=== PATIENT | female | born 1970 | race Caucasian/White ===

== ENCOUNTER 2022-10-12 18:36 | Inpatient (IN) | payer OTHER, SELFPAY ==
[2022-10-12] VITALS (8 sets, daily range): BP systolic 122–156; BP diastolic 81–92; PULSE 79–109; RESP 14–18; TEMP 36.3–37.1; O2SAT 99–100; BMI 26.2; BMI 26.6
--- NOTE | 2022-10-12 19:02 | RAD_ITS ---
STUDY: X-RAY CHEST REASON FOR EXAM: Female, 52 years old. chest pain TECHNIQUE: AP portable COMPARISON: None. FINDINGS: The lungs are clear and expanded. There is no demonstrated pleural abnormality. Normal size heart. Normal mediastinum and georgette. Normal visualized pulmonary arteries. Normal visualized aortic arch and descending thoracic aorta. Dorsal spine demonstrates degenerative change. Normal visualized ribs, clavicles, and shoulders. There is no demonstrated abnormality of the visualized soft tissue structures of the upper abdomen. RAD/Chest 1 View (Portable) IMPRESSION: No acute cardiopulmonary pathology. Electronically Signed: Adarsh Melendez MD at 19:45 EDT ,
[2022-10-12 19:08] LABS: Absolute Lymphocyte Count 3.96 X10^3/uL (0.83-4.51); Absolute Neutrophil Count 4.8 X10^3/uL (2.0-7.7); Basophil# 0.07 X10^3/uL; Basophil% 0.7 % (0-1); Eosinophil# 0.07 X10^3/uL; Eosinophils% 0.7 % (0-5); Hematocrit 41.3 % (37-47); Hemoglobin 13.8 g/dL (12.0-15.0); Lymphocyte # 3.96 X10^3/ul (0.83-4.51); Lymphocyte % 41.8 % (19-41); Mean Corp Hgb Conc 33.4 g/dL (32-36); Mean Corpuscular Hgb 30.2 pg (27.0-32.0); Mean Corpuscular Volume 90.4 fL (81-99); Mean Platelet Vol. 10.3 fl (6.2-12.0); Monocyte# 0.52 X10^3/uL; Monocyte% 5.5 % (0-10); NRBC Flagged by Analyzer 0 % (0-5); Neutrophil # 4.83 X10^3/uL (2.7-7.7); Neutrophil % 51.1 % (47-70); Platelet Count 287 K/mm3 (150-450); RBC Distribution Width CV 13.3 % (11.6-14.6); Red Blood Count 4.57 M/mm3 (4.2-5.4); White Blood Count 9.5 K/mm3 (4.4-11.0)
[2022-10-12 19:28] LABS: Anion Gap 8 (5-15); BUN 15 mg/dL (7-18); Calcium,Total 9.4 mg/dL (8.5-10.1); Chloride 106 mmol/L (98-107); Creatinine, Serum 0.88 mg/dL (0.55-1.02); EST Glomerular Filtration Rate 72 mL/min (>60); Est Glom Filt Rate - Afr Amer 87 mL/min (>60); Estimated Creatinine Clearance 63.27 ml/min; Glucose 98 mg/dL (74-106); Potassium 4.6 mmol/L (3.5-5.1); Sodium Level 141 mmol/L (136-145); Troponin-I HS 1133 pg/mL (3.0-54.0)
--- NOTE | 2022-10-12 19:36 | EDS_ITS ---
HPI History of Present Illness Chief Complaint: Chest Pain Narrative Narrative: 52-year-old female presenting with chest pain. She states that she has had chest pain all day and it feels like a pressure in the front of her chest that radiates straight to the back of her chest. Patient denies cardiac history. She denies other medical history. She reports that she has not been to a doctor in a very long time. She does also state that her father of an [place]. She states has been nauseous today. She describes her pain as 6 of 10. [facility], [facility] Medical History No acute medical problems Home Medications NK 10/12/22 [History Last Taken Unknown] Allergy/AdvReac Type Severity Reaction Status Date / Time No Known Allergies Allergy Verified 10/12/22 18:52 Social History Smoking Status: Never smoker ROS ROS ED Constitutional Constitutional ED: Denies chills, fever(s) or sweats Eyes Eyes: Denies blurry vision or change in vision ENT ENT ED: Denies ear pain or sore throat Cardiovascular Cardiovascular: Reports chest pain; Denies palpitations or racing heartbeat Respiratory/Chest Respiratory/Chest: Denies cough, dyspnea or sputum Gastrointestinal Gastrointestinal: Reports nausea; Denies abdominal pain, constipation, diarrhea or vomiting Genitourinary Genitourinary ED: Denies dysuria, hematuria or urinary frequency Musculoskeletal Musculoskeletal: Denies arthralgias, myalgias or neck pain Integumentary Denies abscess, Abrasions or rash Neurologic Neurologic: Denies headache(s), paresthesias or weakness Psychiatric Psychiatric: Denies anxiety, depression, suicidal ideation or suicidal thoughts Endocrine Endocrinology: Denies polydipsia or polyuria EXAM Physical Exam Const Vital Signs: 10/12/22 18:37 10/12/22 18:50 10/12/22 18:52 Temperature 97.3 F L Temperature Source Temporal Pulse Rate 109 H Respiratory Rate 18 Respiratory Effort Normal Non-Labored Blood Pressure 156/88 H Blood Pressure Mean 110 Pulse Ox 99 100 Oxygen Delivery Method Room Air Room Air 10/12/22 19:43 Temperature Temperature Source Pulse Rate 97 Respiratory Rate 18 Respiratory Effort Blood Pressure 130/81 H Blood Pressure Mean 97 Pulse Ox 100 Oxygen Delivery Method Room Air Positive well nourished General Appearance ED: NAD; Negative for pallor HEENT Reports moist mucous membranes Eyes PERRL and EOMs intact bilaterally Chest Wall inspection of chest normal Resp normal respiratory effort and clear to auscultation bilaterally Cardio Rate: tachycardic Neuro oriented x3 and CN's II-XII intact bilaterally Sensorium / Orientation: awake and alert Psych mental status grossly normal Skin General Skin Exam: Negative for jaundice or pallor Heart Score History: Highly Suspicious ECG: Normal Age: >45 - <65 years Risk Factors: No Risk Factors Troponin: >/=3 x Normal Limit Score: 5 MDM MDM MDM Narrative Medical decision making narrative: Patient presenting with chest pain. She had pressure in the front of as well as nausea that radiates to the back. She does not have any significant medical history but reports she has not been to the doctor in a long time. Differential includes but is not limited to ACS, PE, aortic dissection, pneumonia, muscle strain, costochondritis. Although the pain radiates to the back is not a ripping tearing sensation to suggest a dissection. I also considered pneumothorax however the patient has equal symmetric breath sounds and chest wall rise. Cannot use PERC criteria because she is tachycardic and will obtain a D-dimer. She does not have any risk factors currently for PE. CBC to evaluate leukocytosis, hemoglobin, platelets, differential. BMP to assess renal function, electrolytes, glucose, anion gap. High-sensitivity troponin, EKG and chest x-ray to assess for cardiopulmonary cause of chest pain. Patient reports 6/10 of pain and she is started on nitro trial. High-sensitivity troponin came back at 1133. Heparin drip was started. Patient reports he took 325 mg of aspirin today prior to coming. Will reevaluate to assess for pain. Discussed with hospitalist for admission. On reevaluation her chest pain did improved and she is now comfortable. Impression: 1. NSTEMI Lab Data Labs: Laboratory Results - last 24 hr 10/12/22 10/12/22 10/12/22 19:02 19:02 19:02 WBC 9.5 RBC 4.57 Hgb 13.8 Hct 41.3 MCV 90.4 MCH 30.2 MCHC 33.4 RDW Std Deviation 44.0 H RDW Coeff of Ag 13.3 Plt Count 287 MPV 10.3 Immature Gran % (Auto) 0.200 Neut % (Auto) 51.1 Lymph % (Auto) 41.8 H [place] % (Auto) 5.5 Eos % (Auto) 0.7 Baso % (Auto) 0.7 Absolute Neuts (auto) 4.8 Absolute Lymphs (auto) 3.96 Nucleated RBC % 0 PT INR APTT D-Dimer Quant (PE/DVT) 0.40 Sodium 141 Potassium 4.6 Chloride 106 Carbon Dioxide 27.0 Anion Gap 8 BUN 15 Creatinine 0.88 Estim Creat Clear Calc 63.27 Est GFR (MDRD) Af Amer 87 Est GFR (MDRD) Non-Af 72 BUN/Creatinine Ratio 17.0 Glucose 98 Calcium 9.4 Troponin I High Sens 1133 H* 10/12/22 19:02 WBC RBC Hgb Hct MCV MCH MCHC RDW Std Deviation RDW Coeff of Ag Plt Count MPV Immature Gran % (Auto) Neut % (Auto) Lymph % (Auto) [place] % (Auto) Eos % (Auto) Baso % (Auto) Absolute Neuts (auto) Absolute Lymphs (auto) Nucleated RBC % PT 11.7 INR 0.9 APTT 28.2 D-Dimer Quant (PE/DVT) Sodium Potassium Chloride Carbon Dioxide Anion Gap BUN Creatinine Estim Creat Clear Calc Est GFR (MDRD) Af Amer Est GFR (MDRD) Non-Af BUN/Creatinine Ratio Glucose Calcium Troponin I High Sens Radiography Diagnostic Testing: Clinical Impression(s) from Imaging Studies Chest X-Ray 10/12/22 19:02 IMPRESSION: No acute cardiopulmonary pathology. Electronically Signed: Adarsh Melendez MD at 19:45 EDT , Discharge Plan Triage Chief Complaint: Chest Pain ED Provider: Christopher Mcknight Dx/Rx/DC Orders Primary Care Provider: Olive Chowdhury
--- NOTE | 2022-10-12 19:46 | PCM.HP.STD ---
HPI - General General Date of Admission: 10/12/22 Date of Service: 10/12/22 Chief Complaint: Chest pain HPI Narrative VARUN CHERRY, is a 52 F who presents to the emergency room with chief complaint of chest pain. Onset of symptoms began this morning approximately 10:00 while she was cutting grass. Patient is of a [place] order and has not seen a doctor in recently.. She has significant family history for father who young of heart attack. Originally the pain was substernal radiating to the right upper shoulder and back and currently is dissipated but rates it 6 out of 10 in her mid back at this time. EKG is negative for ST elevations. Troponin is markedly elevated at 1100. Patient denies any fevers chills, nausea vomiting or diarrhea and/or shortness of breath at this time. Patient will be admitted to the progressive care unit for further cardiac management and anticipate cardiac catheterization. [facility] Medical History No acute medical problems Home Medications NK 10/12/22 [History Last Taken Unknown] Allergy/AdvReac Type Severity Reaction Status Date / Time No Known Allergies Allergy Verified 10/12/22 18:52 Social History Smoking Status: Never smoker ROS Constitutional Constitutional: Denies chills or fever(s) Eyes Eyes: Denies blurry vision or change in vision ENT HEENT: Denies abnormal hearing Cardiovascular Cardiovascular: Reports chest pain; Denies edema or syncope Respiratory/Chest Respiratory/Chest: Denies cough Gastrointestinal Gastrointestinal: Denies abdominal pain Genitourinary Genitourinary: Denies dysuria Musculoskeletal Musculoskeletal: Reports back pain Integumentary Integumentary: Denies dry skin Neurologic Neurologic: Denies abnormal gait Psychiatric Psychiatric: Denies anxiety Vital Signs Vital Signs Vital Signs: 10/12/22 18:37 10/12/22 18:50 10/12/22 18:52 Temperature 97.3 F L Temperature Source Temporal Pulse Rate 109 H Respiratory Rate 18 Respiratory Effort Normal Non-Labored Blood Pressure 156/88 H Blood Pressure Mean 110 Pulse Ox 99 100 Oxygen Delivery Method Room Air Room Air 10/12/22 19:43 Temperature Temperature Source Pulse Rate 97 Respiratory Rate 18 Respiratory Effort Blood Pressure 130/81 H Blood Pressure Mean 97 Pulse Ox 100 Oxygen Delivery Method Room Air Weight Weight: 148 lb Body Mass Index (BMI) 26.2 Physical Exam Const alert and oriented x3 General Appearance: cooperative HEENT normocephalic and head/scalp atraumatic Lymph Lymphatic: no lymphadenopathy noted Resp normal respiratory effort, normal air movement and clear to auscultation bilaterally Cardio regular rate, regular rhythm, S1 normal heart sound, S2 normal heart sound, no murmurs, no rub and no gallops GI normal to inspection, nondistended, normoactive bowel sounds Extremity normal capillary refill and no clubbing, cyanosis or edema Skin General Skin Exam: no breakdown Neuro no focal motor deficits and no sensory deficits noted Psych thought process normal, cooperative and affect normal Results Lab / Micro Data Result Diagrams: 10/12/22 19:02 10/12/22 19:02 Labs: Laboratory Results - last 24 hr 10/12/22 19:02: WBC 9.5, RBC 4.57, Hgb 13.8, Hct 41.3, MCV 90.4, MCH 30.2, MCHC 33.4, RDW Std Deviation 44.0 H, RDW Coeff of Ag 13.3, Plt Count 287, MPV 10.3, Immature Gran % (Auto) 0.200, Neut % (Auto) 51.1, Lymph % (Auto) 41.8 H, [place] % (Auto) 5.5, Eos % (Auto) 0.7, Baso % (Auto) 0.7, Absolute Neuts (auto) 4.8, Absolute Lymphs (auto) 3.96, Nucleated RBC % 0 10/12/22 19:02: D-Dimer Quant (PE/DVT) 0.40 10/12/22 19:02: Sodium 141, Potassium 4.6, Chloride 106, Carbon Dioxide 27.0, Anion Gap 8, BUN 15, Creatinine 0.88, Estim Creat Clear Calc 63.27, Est GFR (MDRD) Af Amer 87, Est GFR (MDRD) Non-Af 72, BUN/Creatinine Ratio 17.0, Glucose 98, Calcium 9.4, Troponin I High Sens 1133 H* Assessment & Plan Assessment/Plan (1) NSTEMI (non-ST elevated myocardial infarction): PLAN: Plan 1 non-ST elevation MO?admit patient to progressive care unit, consult cardiology, cycle cardiac enzymes, morphine, oxygen, nitroglycerin and aspirin per routine protocol. We will make patient n.p.o. at midnight anticipating likely heart catheterization tomorrow morning. We will repeat CBC BMP and PT/INR as well 2. DVT prophylaxis?patient has been heparinized in the emergency room Charges/Coding Visit Charges Inpatient E&M: 13567 Init Hosp L3
[2022-10-12] MEDS: 0.9% Normal Saline 1,000 ML 999 ML IV (19:57)
[2022-10-12 19:58] LABS: International Normalized Ratio 0.9; Prothrombin Time (Protime)PT. 11.7 SECONDS (11.7-14.9)
[2022-10-12 19:59] LABS: Partial Thromboplast Time 28.2 Seconds (24.1-36.2)
[2022-10-12] MEDS: HEPARIN/D5w 25,000 UNITS 25,000 UNITS/250 ML IV.SOLN. 8 UNITS CONT INF (20:13)
--- NOTE | 2022-10-12 21:07 | PCM.CONS.C ---
Assessment & Plan Assessment/Plan (1) NSTEMI (non-ST elevated myocardial infarction): PLAN: She presents with a non-ST elevation myocardial infarction. His symptoms are fairly classic. I have discussed with her and her and my recommendation will be to proceed as follows. Aspirin 81 mg a day. Toprol-XL 25 mg a day. Lipitor 40 mg tonight. Lovenox 1 mg/kg twice daily. Left heart catheterization in a.m. Depending on the findings further recommendations will be made. Risk benefits alternatives have been discussed with her and her they understand and agree to proceed. Thank you for allowing me to participate in the care of your patient. Please don't hesitate to call if any issues arise. HPI Consult Data Date of Consult: 10/12/22 HPI Narrative HPI Narrative: VARUN CHERRY, is a 52 F who presents to the emergency room complaining of chest discomfort described as a heaviness and tightness across her chest radiating to her back associated with sharp discomfort. She was also experiencing some diaphoresis. This happened when she was mowing the lawn this afternoon. She says that she has otherwise been in excellent health with no dizziness or diaphoresis near syncope or syncope. She has not really been on medications and has been doing well otherwise. [facility] Medical History No acute medical problems Home Medications NK 10/12/22 [History Last Taken Unknown] Allergy/AdvReac Type Severity Reaction Status Date / Time No Known Allergies Allergy Verified 10/12/22 18:52 Social History Smoking Status: Never smoker ROS Constitutional Constitutional: Denies fever(s) or weight loss Eyes Eyes: Reports systems reviewed and no addt'l complaints, except as documented ENT HEENT: Reports systems reviewed and no addt'l complaints, except as documented Cardiovascular Cardiovascular: Reports chest pain at rest, chest pain with activity and dyspnea on exertion; Denies dyspnea at rest, edema, palpitations or paroxysmal nocturnal dyspnea Respiratory/Chest Respiratory/Chest: Denies dyspnea on exertion, productive cough, shortness of breath at rest or shortness of breath with exertion Gastrointestinal Gastrointestinal: Denies change in bowel habits, nausea, vomiting or weight changes Genitourinary Genitourinary: Denies difficulty urinating Musculoskeletal Musculoskeletal: Denies joint stiffness or muscle weakness Integumentary Integumentary: Denies lesions Neurologic Neurologic: Denies dizziness or syncope Psychiatric Psychiatric: Denies anxiety Endocrine Endocrinology: Denies excessive sweating or fatigue Hematologic/Lymphatic Hematologic/Lymphatic: Denies anemia Allergic/Immunologic Allergic/Immunologic: Denies seasonal rhinorrhea Physical Exam Const alert, oriented x3 and no apparent distress General Appearance: cooperative HEENT hearing grossly normal bilaterally Head and Scalp: atraumatic Eyes EOMs intact bilaterally Neck General: normal visual inspection Chest inspection of chest normal and palpation of chest normal Resp normal respiratory effort Auscultation: clear to auscultation bilaterally Cardio regular rate, regular rhythm, S1 normal heart sound and S2 normal heart sound Jugular Venous Distention: JVD GI normal to inspection, nondistended, normoactive bowel sounds Extremity normal capillary refill and no pedal edema Peripheral Pulses: Yes pulses 2+ throughout and femoral pulses present Skin no rashes or lesions noted Neuro oriented x3 and CN's II-XII intact bilaterally Psych Appearance: grossly normal and appropriate Risk Stratification Risk Stratification Applicable: Yes Age >/= 65: No >/= 3 CAD Risk Factors (HTN, HLD, DM, family hx of CAD, or current smoker): No Aspirin Use in the Past 7 Days: No Severe Angina (>/= episodes in 24 hours): No EKG ST Changes >/= 0.5mm: No Positive Cardiac Marker: Yes PJ Risk Stratification Score: 1 PJ % Risk: 5% Risk Objective Data Vital Signs: Vital Signs Temp Pulse Resp BP Pulse Ox O2 Del Method 97.3 F L 93 15 146/92 H 100 Room Air 10/12/22 20:37 10/12/22 21:01 10/12/22 21:01 10/12/22 21:01 10/12/22 21:01 10/12/22 21:01 Oxygen Delivery Method Room Air Weight: 148 lb Body Mass Index (BMI) 26.2 Intake & Output: Intake and Output for Last 24 Hours 10/10/22 10/11/22 10/12/22 23:59 23:59 23:59 Intake Total 1000 / 1000 Balance 1000 / 1000 Lab / Micro Data Result Diagrams: 10/12/22 19:02 10/12/22 19:02 Labs: Laboratory Results - last 24 hr 10/12/22 19:02: WBC 9.5, RBC 4.57, Hgb 13.8, Hct 41.3, MCV 90.4, MCH 30.2, MCHC 33.4, RDW Std Deviation 44.0 H, RDW Coeff of Ag 13.3, Plt Count 287, MPV 10.3, Immature Gran % (Auto) 0.200, Neut % (Auto) 51.1, Lymph % (Auto) 41.8 H, [place] % (Auto) 5.5, Eos % (Auto) 0.7, Baso % (Auto) 0.7, Absolute Neuts (auto) 4.8, Absolute Lymphs (auto) 3.96, Nucleated RBC % 0 10/12/22 19:02: D-Dimer Quant (PE/DVT) 0.40 10/12/22 19:02: Sodium 141, Potassium 4.6, Chloride 106, Carbon Dioxide 27.0, Anion Gap 8, BUN 15, Creatinine 0.88, Estim Creat Clear Calc 63.27, Est GFR (MDRD) Af Amer 87, Est GFR (MDRD) Non-Af 72, BUN/Creatinine Ratio 17.0, Glucose 98, Calcium 9.4, Troponin I High Sens 1133 H* 10/12/22 19:02: PT 11.7, INR 0.9, APTT 28.2 Cardiology Labs/Tests 10/12/22 19:02: WBC 9.5, RBC 4.57, Hgb 13.8, Hct 41.3, MCV 90.4, MCH 30.2, MCHC 33.4, Plt Count 287, MPV 10.3, Immature Gran % (Auto) 0.200, Neut % (Auto) 51.1, Lymph % (Auto) 41.8 H, [place] % (Auto) 5.5, Eos % (Auto) 0.7, Baso % (Auto) 0.7, Absolute Neuts (auto) 4.8, Nucleated RBC % 0 10/12/22 19:02: D-Dimer Quant (PE/DVT) 0.40 10/12/22 19:02: Sodium 141, Potassium 4.6, Chloride 106, Carbon Dioxide 27.0, Anion Gap 8, BUN 15, Creatinine 0.88, Est GFR (MDRD) Af Amer 87, Est GFR (MDRD) Non-Af 72, BUN/Creatinine Ratio 17.0, Glucose 98, Calcium 9.4 10/12/22 19:02: PT 11.7, INR 0.9, APTT 28.2 Rhythm: EKG: ECHO: Stress Test: Cardiac Cath: PCI: CT Surgery: Holter monitor: EPS: PPM: CXR: Chest CT Scan: Radiography Diagnostic Testing: Radiology Impression Chest X-Ray 10/12/22 19:02 IMPRESSION: No acute cardiopulmonary pathology. Electronically Signed: Adarsh Melendez MD at 19:45 EDT ,
--- NOTE | 2022-10-12 21:44 | ED.RN ---
THIS RN CONFIRMED HEPARIN DRIP INFUSING TO LEFT AC IV AT 8ML/HR AT 2140. IV PATENT, INFUSING. NO S/S OF INFILTRATION. DRIP RATE CONFIRMED AT BEDSIDE WITH CHRISTOPHER SOLARES.. PT VITALS 133/77; HEART RATE 83; RESPIRATIONS 13; SPO2 99.
[2022-10-12] MEDS: Atorvastatin Calcium 40 MG Tablet PO (23:52)
[2022-10-13] VITALS (9 sets, daily range): BP systolic 116–125; BP diastolic 71–87; PULSE 64–80; RESP 16–18; TEMP 36.3–36.7; O2SAT 98–100
[2022-10-13 00:43] LABS: Troponin-I HS 2238 pg/mL (3.0-54.0)
[2022-10-13 01:06] LABS: Internal QC Validated? YES +Cl - CLEAR BKGD; Pregnancy, Urine Negative Negative
[2022-10-13 01:56] LABS: Absolute Lymphocyte Count 3.04 X10^3/uL (0.83-4.51); Absolute Neutrophil Count 3.4 X10^3/uL (2.0-7.7); Basophil# 0.05 X10^3/uL; Basophil% 0.7 % (0-1); Eosinophil# 0.07 X10^3/uL; Hematocrit 35.9 % (37-47); Hemoglobin 11.6 g/dL (12.0-15.0); Lymphocyte # 3.04 X10^3/ul (0.83-4.51); Lymphocyte % 43.1 % (19-41); Mean Corp Hgb Conc 32.3 g/dL (32-36); Mean Corpuscular Hgb 29.5 pg (27.0-32.0); Mean Corpuscular Volume 91.3 fL (81-99); Mean Platelet Vol. 10.5 fl (6.2-12.0); Monocyte# 0.45 X10^3/uL; Monocyte% 6.4 % (0-10); NRBC Flagged by Analyzer 0 % (0-5); Neutrophil # 3.43 X10^3/uL (2.7-7.7); Neutrophil % 48.5 % (47-70); Platelet Count 247 K/mm3 (150-450); RBC Distribution Width CV 13.4 % (11.6-14.6); RBC Distribution Width SD 45.3 fl (35.1-43.9); Red Blood Count 3.93 M/mm3 (4.2-5.4); White Blood Count 7.1 K/mm3 (4.4-11.0)
[2022-10-13 02:07] LABS: Partial Thromboplast Time 56.5 Seconds (24.1-36.2)
[2022-10-13 02:17] LABS: Prothrombin Time (Protime)PT. 12.8 SECONDS (11.7-14.9)
[2022-10-13 02:18] LABS: Anion Gap 8 (5-15); BUN 12 mg/dL (7-18); BUN/Creat Ratio 16.5 RATIO (10-20); Calcium,Total 8.4 mg/dL (8.5-10.1); Chloride 110 mmol/L (98-107); Cholesterol 166 mg/dL (200); Creatinine, Serum 0.73 mg/dL (0.55-1.02); EST Glomerular Filtration Rate 90 mL/min (>60); Est Glom Filt Rate - Afr Amer 109 mL/min (>60); Estimated Creatinine Clearance 76.27 ml/min; Glucose 129 mg/dL (74-106); High Density Lipoprotein 60 mg/dL; Potassium 3.4 mmol/L (3.5-5.1); Sodium Level 142 mmol/L (136-145); Triglycerides 61 mg/dL; Very Low Density Lipoprotein 12 mg/dL (5-40)
[2022-10-13 02:24] LABS: Troponin-I HS 2285 pg/mL (3.0-54.0)
[2022-10-13] MEDS: 0.9% Normal Saline 1,000 ML 15 ML IV (06:42)
[2022-10-13] MEDS: Aspirin 325 MG Tablet PO (06:42)
--- NOTE | 2022-10-13 07:16 | ECHOD_ITS ---
Reason For Study: CAD/ASHD Procedure This was a 2D Doppler, Color Flow transthoracic echocardiogram. Exam performed portable in patient room. Left Ventricle Normal LV size. Left ventricular systolic function is normal. The estimated ejection fraction is 60 %. Stage 1 diastolic dysfunction. No regional wall motion abnormalities noted. Right Ventricle Normal RV size. Normal systolic function. Atria Normal left atrium. Normal atrial septum. Bubble contrast study negative for right to left interatrial shunt. Tricuspid Valve Normal tricuspid valve. Aortic Valve Trisinus/trileaflet aortic valve. Pulmonic Valve Normal pulmonic valve. Great Vessels Normal aortic root. The pulmonary artery is normal size. Inferior vena cava collapse with respiration. Pericardium/Pleural No pericardial effusion. Medication Performed a rapid injection of agitated mix of 9 cc saline and 1cc air to assess for atrial septal defect. MMode/2D Measurements & Calculations LVIDd: 4.8 cm IVSd: 0.81 cm Ao root diam: 3.0 cm LVIDs: 3.0 cm LVPWd: 0.66 cm LA dimension: 2.6 cm RVDd: 2.8 cm FS: 37.3 % LAV(MOD-bp): 36.0 ml LVAd ap4: 26.2 cm2 SV(MOD-sp4): 43.1 ml LAV(MOD-bp) Indexed: 21.0 ml/m2 LVLd ap4: 7.8 cm LAV(MOD-sp2): 40.2 ml EDV(MOD-sp4): 72.4 ml LAV(MOD-sp4): 30.0 ml EDV(sp4-el): 74.4 ml LVAs ap4: 14.6 cm2 LVLs ap4: 6.1 cm ESV(MOD-sp4): 29.3 ml ESV(sp4-el): 29.6 ml EF(MOD-sp4): 59.5 % EF(sp4-el): 60.2 % SV(sp4-el): 44.8 ml LA A4 area: 14.1 cm2 RA A4 area: 10.2 cm2 Time Measurements MV dec time: 0.17 sec Doppler Measurements & Calculations MV E max jaciel: 99.6 cm/sec Lat Peak E' Jaciel: 17.7 cm/sec Med Peak E' Jaciel: 14.8 cm/sec MV A max jaciel: 113.7 cm/sec E/E' lat: 5.6 E/E' med: 6.8 MV E/A: 0.88 MV V2 max: 125.5 cm/sec MV P1/2t max jaciel: 121.4 cm/sec Ao V2 max: 110.5 cm/sec MV max P.3 mmHg MV P1/2t: 56.0 msec Ao max P.9 mmHg MV V2 mean: 71.0 cm/sec Ao V2 mean: 75.7 cm/sec MV mean P.4 mmHg MV dec slope: 634.6 cm/sec2 Ao mean P.6 mmHg MV V2 VTI: 29.9 cm MVA(P1/2t): 3.9 cm2 Ao V2 VTI: 23.8 cm AV (velocity ratio): 1.0 LV V1 max: 111.7 cm/sec MR max jaciel: 619.8 cm/sec PA V2 max: 85.1 cm/sec LV V1 max P.0 mmHg MR max P.7 mmHg LV V1 mean P.9 mmHg LV V1 mean: 80.9 cm/sec LV V1 VTI: 24.4 cm ECHO/Echo Complete Interpretation Summary Normal LV size. Left ventricular systolic function is normal. The estimated ejection fraction is 60 %. Bubble contrast study negative for right to left interatrial shunt. Stage 1 diastolic dysfunction. Ordering Physician: Dacia Nixon Referring Physician: Christopher Mcknight Performed By: Bryn Hazel RCS
--- NOTE | 2022-10-13 07:22 | PN.HOSP_ITS ---
Reason for Visit Reason for Visit: Diagnoses Non-ST elevation (NSTEMI) myocardial infarction (10/12/22) Objective Data Objective Data Vital Signs: Vital Signs Temp Pulse Resp BP Pulse Ox O2 Del Method 97.3 F L 80 18 124/87 H 98 Room Air 10/13/22 06:40 10/13/22 06:40 10/13/22 06:40 10/13/22 06:40 10/13/22 06:40 10/13/22 06:40 Oxygen Delivery Method Room Air Weight: 150 lb 9.211 oz Body Mass Index (BMI) 26.6 Intake & Output: Intake and Output for Last 24 Hours 10/11/22 10/12/22 10/13/22 23:59 23:59 23:59 Intake Total 1100 / 1100 100.27 / 100.27 Balance 1100 / 1100 100.27 / 100.27 Lab / Micro Data Result Diagrams: 10/13/22 01:45 10/13/22 01:45 Labs: Laboratory Results - last 24 hr 10/12/22 19:02: WBC 9.5, RBC 4.57, Hgb 13.8, Hct 41.3, MCV 90.4, MCH 30.2, MCHC 33.4, RDW Std Deviation 44.0 H, RDW Coeff of Ag 13.3, Plt Count 287, MPV 10.3, Immature Gran % (Auto) 0.200, Neut % (Auto) 51.1, Lymph % (Auto) 41.8 H, [place] % (Auto) 5.5, Eos % (Auto) 0.7, Baso % (Auto) 0.7, Absolute Neuts (auto) 4.8, Absolute Lymphs (auto) 3.96, Nucleated RBC % 0 10/12/22 19:02: D-Dimer Quant (PE/DVT) 0.40 10/12/22 19:02: Sodium 141, Potassium 4.6, Chloride 106, Carbon Dioxide 27.0, Anion Gap 8, BUN 15, Creatinine 0.88, Estim Creat Clear Calc 63.27, Est GFR (MDRD) Af Amer 87, Est GFR (MDRD) Non-Af 72, BUN/Creatinine Ratio 17.0, Glucose 98, Calcium 9.4, Troponin I High Sens 1133 H* 10/12/22 19:02: PT 11.7, INR 0.9, APTT 28.2 10/13/22 00:15: Troponin I High Sens 2238 H* 10/13/22 00:49: Urine Test Negative 10/13/22 01:45: WBC 7.1, RBC 3.93 L, Hgb 11.6 L, Hct 35.9 L, MCV 91.3, MCH 29.5, MCHC 32.3, RDW Std Deviation 45.3 H, RDW Coeff of Ag 13.4, Plt Count 247, MPV 10.5, Immature Gran % (Auto) 0.300, Neut % (Auto) 48.5, Lymph % (Auto) 43.1 H, [place] % (Auto) 6.4, Eos % (Auto) 1.0, Baso % (Auto) 0.7, Absolute Neuts (auto) 3.4, Absolute Lymphs (auto) 3.04, Nucleated RBC % 0 10/13/22 01:45: PT 12.8, INR 1.0 10/13/22 01:45: Sodium 142, Potassium 3.4 L, Chloride 110 H, Carbon Dioxide 24 .0, Anion Gap 8, BUN 12, Creatinine 0.73, Estim Creat Clear Calc 76.27, Est GFR (MDRD) Af Amer 109, Est GFR (MDRD) Non-Af 90, BUN/Creatinine Ratio 16.5, Glucose 129 H, Calcium 8.4 L, Magnesium 2.0, Triglycerides 61, Cholesterol 166, LDL Cholesterol 94, VLDL Cholesterol 12, HDL Cholesterol 60 10/13/22 01:45: APTT 56.5 H 10/13/22 01:45: Troponin I High Sens 2285 H* Radiography Diagnostic Testing: Radiology Impression Chest X-Ray 10/12/22 19:02 IMPRESSION: No acute cardiopulmonary pathology. Electronically Signed: Adarsh Melendez MD at 19:45 EDT , Assessment & Plan Assessment/Plan (1) NSTEMI (non-ST elevated myocardial infarction): PLAN: Plan The patient is a 52 y/o [place] F w/ no marked PMHx noted from prior who presents to the [facility] ED on 10/12/22 with history of onset chest discomfort described as heaviness and tightness across her chest rating towards her back with associated diaphoresis while mowing the lawn prompting eventual ED evaluation #1. Chest Pain w/ Acute NSTEMI: Work-up in the ED included T97.3, heart rate 109, BP 156/88, respiratory rate 18, 99% on room air, CBC with WC 9.5, hemoglobin 13.8, platelet 287 without marked shift, unremarkable coags, D-dimer 0.40, BMP unremarkable, magnesium 2.0, troponin 1133--> 2238--> 2285, chest x- ray with no acute cardiopulmonary findings, EKG with sinus rhythm with no acute evidence of ischemia. Patient mated to PCU, maintain on a monitored bed, continue serial enzymes as noted and EKGs as needed. Maintained on heparin drip initiated per ED. Maintained on aspirin, statin, initial plan for Toprol 25 mg XL per cardiology initial evaluation however appears to have been deferred possibly secondary to normalization of BP, echocardiogram requested, n.p.o. currently for planned cardiac catheterization, continue judicious IV fluids. #2. Normocytic anemia, unclear chronicity: Initial admission hemoglobin 13.8, follow-up hemoglobin 11.6, MCV normal range, potential presentation hemoglobin falsely elevated/concentrated, will continue to trend CBC, will obtain iron panel, ferritin, vitamin B12 and folic acid levels to be cautious. Given planned initiation of potential antiplatelet therapy we will also request guaiac. #3. Elevated BP without hypertensive diagnosis: BP upon presentation initially elevated however since normalized, will await cardiac catheterization and cardiology input for potential beta-ernestine/FEDERICO inhibitor/ARB addition. Initial cardiology consultation noted intention for Toprol 25 mg XL addition however this was deferred potentially secondary to BP normalization. #4. Hypokalemia: Admission K+ 3.4, magnesium two-point, supplementation given, repeat level in AM. #5. DVT prophylaxis: Heparin drip continued as noted. #6. CODE STATUS: Full Code. Admission Evaluation Time spent evaluating chart, patient history, patient evaluation, care planning and discussion with specialists: [] minutes.
[2022-10-13] MEDS: Potassium Chloride Oral Tablet 20 MEQ 40 MEQ PO (07:39)
[2022-10-13 08:03] LABS: Iron 78 ug/dL (50-170); Iron Binding Capacity,Total 240 ug/dL (250-450); PERCENT IRON SATURATION 32.5 % (15.0-55.0)
[2022-10-13 08:48] LABS: Vitamin B12 507 pg/mL (211-911)
--- NOTE | 2022-10-13 10:35 | NURSING ---
Bedside report given to laboratory monitor CHRISTOPHER Villanueva.
--- NOTE | 2022-10-13 11:34 | PCM.PN.CARD ---
Subjective Subjective Patient seen and evaluated. Appears to be doing well. Underwent cardiac catheterization today. Objective Data Vital Signs: Vital Signs Temp Pulse Resp BP Pulse Ox O2 Del Method 97.3 F L 80 18 124/87 H 98 Room Air 10/13/22 06:40 10/13/22 06:40 10/13/22 06:40 10/13/22 06:40 10/13/22 06:40 10/13/22 07:40 Oxygen Delivery Method Room Air Weight: 150 lb 9.211 oz Body Mass Index (BMI) 26.6 Intake & Output: Intake and Output for Last 24 Hours 10/11/22 10/12/22 10/13/22 23:59 23:59 23:59 Intake Total 1100 / 1100 100.27 / 100.27 Balance 1100 / 1100 100.27 / 100.27 Lab / Micro Data Result Diagrams: 10/13/22 01:45 10/13/22 01:45 Labs: Laboratory Results - last 24 hr 10/12/22 19:02: WBC 9.5, RBC 4.57, Hgb 13.8, Hct 41.3, MCV 90.4, MCH 30.2, MCHC 33.4, RDW Std Deviation 44.0 H, RDW Coeff of Ag 13.3, Plt Count 287, MPV 10.3, Immature Gran % (Auto) 0.200, Neut % (Auto) 51.1, Lymph % (Auto) 41.8 H, [place] % (Auto) 5.5, Eos % (Auto) 0.7, Baso % (Auto) 0.7, Absolute Neuts (auto) 4.8, Absolute Lymphs (auto) 3.96, Nucleated RBC % 0 10/12/22 19:02: D-Dimer Quant (PE/DVT) 0.40 10/12/22 19:02: Sodium 141, Potassium 4.6, Chloride 106, Carbon Dioxide 27.0, Anion Gap 8, BUN 15, Creatinine 0.88, Estim Creat Clear Calc 63.27, Est GFR (MDRD) Af Amer 87, Est GFR (MDRD) Non-Af 72, BUN/Creatinine Ratio 17.0, Glucose 98, Calcium 9.4, Troponin I High Sens 1133 H* 10/12/22 19:02: PT 11.7, INR 0.9, APTT 28.2 10/13/22 00:15: Troponin I High Sens 2238 H* 10/13/22 00:49: Urine Test Negative 10/13/22 01:45: WBC 7.1, RBC 3.93 L, Hgb 11.6 L, Hct 35.9 L, MCV 91.3, MCH 29.5, MCHC 32.3, RDW Std Deviation 45.3 H, RDW Coeff of Ag 13.4, Plt Count 247, MPV 10.5, Immature Gran % (Auto) 0.300, Neut % (Auto) 48.5, Lymph % (Auto) 43.1 H, [place] % (Auto) 6.4, Eos % (Auto) 1.0, Baso % (Auto) 0.7, Absolute Neuts (auto) 3.4, Absolute Lymphs (auto) 3.04, Nucleated RBC % 0 10/13/22 01:45: PT 12.8, INR 1.0 10/13/22 01:45: Sodium 142, Potassium 3.4 L, Chloride 110 H, Carbon Dioxide 24.0, Anion Gap 8, BUN 12, Creatinine 0.73, Estim Creat Clear Calc 76.27, Est GFR (MDRD) Af Amer 109, Est GFR (MDRD) Non-Af 90, BUN/Creatinine Ratio 16.5, Glucose 129 H, Calcium 8.4 L, Magnesium 2.0, Triglycerides 61, Cholesterol 166, LDL Cholesterol 94, VLDL Cholesterol 12, HDL Cholesterol 60 10/13/22 01:45: APTT 56.5 H 10/13/22 01:45: Troponin I High Sens 2285 H* 10/13/22 01:45: Iron 78, TIBC 240 L, Iron Saturation 32.5, Folate 16.30 10/13/22 08:10: Vitamin B12 507 Cardiology Labs/Tests 10/12/22 19:02: WBC 9.5, RBC 4.57, Hgb 13.8, Hct 41.3, MCV 90.4, MCH 30.2, MCHC 33.4, Plt Count 287, MPV 10.3, Immature Gran % (Auto) 0.200, Neut % (Auto) 51.1, Lymph % (Auto) 41.8 H, [place] % (Auto) 5.5, Eos % (Auto) 0.7, Baso % (Auto) 0.7, Absolute Neuts (auto) 4.8, Nucleated RBC % 0 10/12/22 19:02: D-Dimer Quant (PE/DVT) 0.40 10/12/22 19:02: Sodium 141, Potassium 4.6, Chloride 106, Carbon Dioxide 27.0, Anion Gap 8, BUN 15, Creatinine 0.88, Est GFR (MDRD) Af Amer 87, Est GFR (MDRD) Non-Af 72, BUN/Creatinine Ratio 17.0, Glucose 98, Calcium 9.4 10/12/22 19:02: PT 11.7, INR 0.9, APTT 28.2 10/13/22 01:45: WBC 7.1, RBC 3.93 L, Hgb 11.6 L, Hct 35.9 L, MCV 91.3, MCH 29.5, MCHC 32.3, Plt Count 247, MPV 10.5, Immature Gran % (Auto) 0.300, Neut % (Auto) 48.5, Lymph % (Auto) 43.1 H, [place] % (Auto) 6.4, Eos % (Auto) 1.0, Baso % (Auto) 0.7, Absolute Neuts (auto) 3.4, Nucleated RBC % 0 10/13/22 01:45: PT 12.8, INR 1.0 10/13/22 01:45: Sodium 142, Potassium 3.4 L, Chloride 110 H, Carbon Dioxide 24.0, Anion Gap 8, BUN 12, Creatinine 0.73, Est GFR (MDRD) Af Amer 109, Est GFR (MDRD) Non-Af 90, BUN/Creatinine Ratio 16.5, Glucose 129 H, Calcium 8.4 L, Magnesium 2.0, Triglycerides 61, Cholesterol 166, LDL Cholesterol 94, VLDL Cholesterol 12, HDL Cholesterol 60 10/13/22 01:45: APTT 56.5 H 10/13/22 01:45: Iron 78, TIBC 240 L, Iron Saturation 32.5 Rhythm: EKG: ECHO: Stress Test: Cardiac Cath: PCI: CT Surgery: Holter monitor: EPS: PPM: CXR: Chest CT Scan: Radiography Diagnostic Testing: Radiology Impression Chest X-Ray 10/12/22 19:02 IMPRESSION: No acute cardiopulmonary pathology. Electronically Signed: Adarsh Melendez MD at 19:45 EDT Reading Location ID and State: [facility] / [place] , Service support , Echocardiogram 10/13/22 07:16 Interpretation Summary Normal LV size. Left ventricular systolic function is normal. The estimated ejection fraction is 60 %. Bubble contrast study negative for right to left interatrial shunt. Stage 1 diastolic dysfunction. Ordering Physician: Dacia Nixon Referring Physician: Christopher Mcknight Performed By: Bryn Hazel RCS Physical Exam Const alert, oriented x3 and no apparent distress General Appearance: cooperative HEENT hearing grossly normal bilaterally Head and Scalp: atraumatic Eyes EOMs intact bilaterally Neck General: normal visual inspection Chest inspection of chest normal and palpation of chest normal Resp normal respiratory effort Auscultation: clear to auscultation bilaterally Cardio regular rate, regular rhythm, S1 normal heart sound and S2 normal heart sound Jugular Venous Distention: JVD GI normal to inspection, nondistended, normoactive bowel sounds Extremity normal capillary refill and no pedal edema Peripheral Pulses: Yes pulses 2+ throughout and femoral pulses present Skin no rashes or lesions noted Neuro oriented x3 and CN's II-XII intact bilaterally Psych Appearance: grossly normal and appropriate Assessment & Plan Assessment/Plan (1) NSTEMI (non-ST elevated myocardial infarction): PLAN: She presents with a non-ST elevation myocardial infarction. His symptoms are fairly classic. Cardiac catheterization today demonstrated the following: Normal left main coronary. Left anterior descending artery with no evidence of high-grade stenosis. Left circumflex artery nondominant with no high-grade stenosis. Dominant right coronary artery with no significant stenosis noted. Based on the above angiographic findings I would suggest that we continue with the beta-ernestine with Toprol XL for 3 months and aspirin 81 mg a day. Thank you for allowing me to participate in the care of your patient. Please don't hesitate to call if any issues arise.
--- NOTE | 2022-10-13 11:46 | DCINST_ITS ---
Discharge Instructions Diet Discharge Diet: Low fat / Low cholesterol Activity Discharge Activity: - (May return to normal activity once completed all post- catheterization restrictions.) May resume sexual activity in: 10-14 days Weight Bearing Status: Weight bearing as tolerated Dressing / Incision Call your doctor if your incision/area has: Continuous Slow Oozing, Sudden Incre ased Bleeding, Increased Pain/ Swelling, Increased Redness, Foul Smelling Discharge and Swelling at the incision site Call your doctor if you observe: Fever of 101 or Higher, Shortness of breath, Dizziness, Chest pain, Increased palpitations (irregular heartbeat) and Uncontrolled pain Follow Up Care Test Results: Test results from this visit will be discussed in further detail at your follow- up appointment, if applicable. Discharge Plan Admission Admit Date/Time: 10/12/22 19:53 Primary Reason for Your Visit: NSTEMI presumed type I, Elevated BP without HTN Attending Provider: Dacia Nixon Primary Care Provider: Olive Chowdhury Consulting Providers: Henrik Waterman ; Kenroy Kelly Instructions Patient Instructions: Heart Attack Dc, Heart Attack Meds, Heart Attack Questions Additional Instructions / Restrictions: HEART ATTACK (TYPE I NSTEMI) INFORMATION/PLAN OF CARE: (1) Your heart catheterization and how your heart pumps were found to be normal. There may have been a small plaque in a vessel that ruptured that caused the discomfort and heart enzyme elevation/heart attack. (2) At this time cardiology Dr. Waterman would like to continue these medications for a total of 3 months and then may discontinue: (a) Toprol XL 25 mg daily (6) Aspirin (baby) 81 mg daily (3) At the 3 month period you may opt to follow-up with Dr. Waterman in the office at your preference. (4) If any recurrent chest discomfort please contact his office for earlier assessment. Discharge Orders/Prescriptions Prescriptions: New aspirin 81 mg Tablet,Chewable 81 mg PO BREAKFAST 90 Days Qty: 90 0RF metoprolol succinate [Toprol XL] 25 mg tablet extended release 24 hr 25 mg PO DAILY 90 Days Qty: 90 0RF Referrals / Follow Up: Henrik Waterman MD [Med Staff - Active Staff] - (May follow-up in 3 months per patient preference. May contact earlier if any concerns or recurrent chest pain.) Olive Chowdhury, [employer] [Primary Care Provider] - In 1 Week (To review admission and plan of care.) Disposition Disposition (needs filled in before D/C Order can be placed): Home, Self Care
--- NOTE | 2022-10-13 11:47 | DS.PCM_ITS ---
Providers Date of Admission: 10/12/22 Date of Discharge: 10/13/22 Primary Care Physician: IGNACIO Albarran Consultations 10/12/22 22:43 Consult: Cardiology Routine Consulting Provider: Henrik Waterman Reason for Consult: NSTEMI EMERGENT Consult: Yes MD Notified: Yes Date Notified: 10/12/22 Time Notified: 20:03 Method of Notification: Text Reason For Visit: NON ST ELEVATION [place] Diagnosis Discharge Diagnosis (1) NSTEMI (non-ST elevated myocardial infarction): Status: Acute Code(s): I21.4 - Non-ST elevation (NSTEMI) myocardial infarction Plan: Additional diagnoses: #1. NSTEMI type I presumed with no obstructive CAD noted on catheterization and preserved EF #2. Elevated BP without HTN diagnosis, improved without intervention #3. Normocytic anemia #4. Hypokalemia Medications at Discharge Home Medications aspirin 81 mg chewable tablet 81 mg PO BREAKFAST 90 days #90 tabs 10/13/22 metoprolol succinate 25 mg tablet,extended release 24 hr (Toprol XL) 25 mg PO DAILY 90 days #90 tabs 10/13/22 Hospital Course Procedures 2-D Echocardiogram and Cardiac catheterization Summary of Care Provided Minutes Spent on Discharge: 35 Hospital Course: The patient is a 52 y/o F w/ no marked PMHx no on any medications, regularly active who presents to the [facility] ED on 10/12/22 with history of onset of chest discomfort described as a heaviness and a tightness across her chest rating toward her back with associated diaphoresis while mowing the lawn in the afternoon on day of presentation with no dyspnea, dizziness, lightheadedness however given ongoing symptoms prompted ED evaluation. Initial ED evaluation with elevated cardiac enzyme 1133, EKG with sinus rhythm with no acute evidence of ischemia, chest x-ray with no acute cardiopulmonary findings. Patient was admitted to the PCU, maintain initially on aspirin therapy as well as heparin drip, maintained home telemetry monitoring with no marked telemetry events, cardiac enzymes were cycled with initial 1133-> 2238-> most recent repeat 2285, lipid panel obtained with noted LDL 94, VLDL 12, HDL 60, cholesterol 166, triglycerides 61 with initial statin added however following unremarkable catheterization de-escalated off per cardiology discretion. Echocardiogram obtained with noted normal LV size, normal LV systolic function, EF 60%, bubble contrast study negative with stage I diastolic dysfunction. Patient underwent cardiac catheterization 10/13/2022 with a normal left main coronary, left anterior descending artery with no evidence of any high-grade stenosis, left circumflex artery nondominant with no high-grade stenosis, dominant right coronary artery with no significant stenosis also noted. Given patient elevated troponins but no findings on cardiac catheterization and no marked concerning findings on echocardiogram cardiology recommendation for continue Toprol XL 25 mg daily as well as aspirin 81 mg daily x3 months with follow-up per patient discretion. Of note also, repeat labs 10/13/2022 with noted hemoglobin 11.6 with MCV 91.3 and given planned cardiac catheterization in case of stenting needs iron panel obtained as well as vitamin B12 and folic acid all of which was not marked aside TIBC 240 but no guaiac was obtained. Cardiology amenable for discharge following catheterization with also recommended PCP follow-up. DAY OF DISCHARGE PROGRESS NOTE: Subjective: Patient without acute event overnight per self and nursing report. Patient notes complete resolution of her chest discomfort. Patient denies fever, chills, nausea, emesis, abdominal pain, dyspnea. Patient agreeable to discharge to to home following cardiac catheterization with recommendations for continued aspirin therapy and Toprol XL x3 months per cardiology discretion. Patient will be discharged with follow-up with primary care physician in addition to follow-up in 3 months with cardiology per her preference per discussion with cardiology. Objective: T98, heart 70, BP 116/74, respiratory rate 17, 100% room air Physical Examination: General: awake, alert, oriented x 3 and cooperative, seated upright in the PCU bed, NAD. Skin: normal color, turgor, no icterus, cyanosis. HEENT: AT/NC, EOMI, PERRLA, MMM. Lungs: CTA bilaterally, moderate effort, mild decrease BL bases, no rales, ronchi or wheezing; Heart: Regular rate and rhythm; no gallop, rub audible. Abdomen: soft, NTTP, ND, normal BS. Extremities: no cyanosis, clubbing, or edema. Neurological: patient awake, alert, oriented as noted, cognitive function appears intact upon questioning,; pupils equally reactive to light and accomodation; cranial nerves II-XII grossly normal, moving all 4 extremities, strength appropriate. Psychiatric: affect appears mildly fatigued otherwise normal, no acute evidence of depressive or anxiety feelings. Assessment and Plan: Please see hospital summary above. Weight / BMI Weight Weight: 150 lb 9.211 oz Body Mass Index (BMI) 26.6 ABG / Lab / Microbiology Data Result Diagrams: 10/13/22 01:45 10/13/22 01:45 Laboratory: Laboratory Results - last 24 hr 10/12/22 19:02: WBC 9.5, RBC 4.57, Hgb 13.8, Hct 41.3, MCV 90.4, MCH 30.2, MCHC 33.4, RDW Std Deviation 44.0 H, RDW Coeff of Ag 13.3, Plt Count 287, MPV 10.3, Immature Gran % (Auto) 0.200, Neut % (Auto) 51.1, Lymph % (Auto) 41.8 H, [place] % (Auto) 5.5, Eos % (Auto) 0.7, Baso % (Auto) 0.7, Absolute Neuts (auto) 4.8, Absolute Lymphs (auto) 3.96, Nucleated RBC % 0 10/12/22 19:02: D-Dimer Quant (PE/DVT) 0.40 10/12/22 19:02: Sodium 141, Potassium 4.6, Chloride 106, Carbon Dioxide 27.0, Anion Gap 8, BUN 15, Creatinine 0.88, Estim Creat Clear Calc 63.27, Est GFR (MDRD) Af Amer 87, Est GFR (MDRD) Non-Af 72, BUN/Creatinine Ratio 17.0, Glucose 98, Calcium 9.4, Troponin I High Sens 1133 H* 10/12/22 19:02: PT 11.7, INR 0.9, APTT 28.2 10/13/22 00:15: Troponin I High Sens 2238 H* 10/13/22 00:49: Urine Test Negative 10/13/22 01:45: WBC 7.1, RBC 3.93 L, Hgb 11.6 L, Hct 35.9 L, MCV 91.3, MCH 29.5, MCHC 32.3, RDW Std Deviation 45.3 H, RDW Coeff of Ag 13.4, Plt Count 247, MPV 10.5, Immature Gran % (Auto) 0.300, Neut % (Auto) 48.5, Lymph % (Auto) 43.1 H, [place] % (Auto) 6.4, Eos % (Auto) 1.0, Baso % (Auto) 0.7, Absolute Neuts (auto) 3.4, Absolute Lymphs (auto) 3.04, Nucleated RBC % 0 10/13/22 01:45: PT 12.8, INR 1.0 10/13/22 01:45: Sodium 142, Potassium 3.4 L, Chloride 110 H, Carbon Dioxide 24.0, Anion Gap 8, BUN 12, Creatinine 0.73, Estim Creat Clear Calc 76.27, Est GFR (MDRD) Af Amer 109, Est GFR (MDRD) Non-Af 90, BUN/Creatinine Ratio 16.5, Glucose 129 H, Calcium 8.4 L, Magnesium 2.0, Triglycerides 61, Cholesterol 166, LDL Cholesterol 94, VLDL Cholesterol 12, HDL Cholesterol 60 10/13/22 01:45: APTT 56.5 H 10/13/22 01:45: Troponin I High Sens 2285 H* 10/13/22 01:45: Iron 78, TIBC 240 L, Iron Saturation 32.5, Folate 16.30 10/13/22 08:10: Vitamin B12 507 Radiography Diagnostic Testing: Radiology Impression Chest X-Ray 10/12/22 19:02 IMPRESSION: No acute cardiopulmonary pathology. Electronically Signed: Adarsh Melendez MD at 19:45 EDT Reading Location ID and State: [address] [place] [address] , Service support , Echocardiogram 10/13/22 07:16 Interpretation Summary Normal LV size. Left ventricular systolic function is normal. The estimated ejection fraction is 60 %. Bubble contrast study negative for right to left interatrial shunt. Stage 1 diastolic dysfunction. Ordering Physician: Dacia Nixon Referring Physician: Christopher Mcknight Performed By: Bryn Hazel RCS D/C Instructions Discharge Diet: Low fat / Low cholesterol May resume sexual activity in: 10-14 days Weight Bearing Status: Weight bearing as tolerated Call your doctor if your incision/area has: Continuous Slow Oozing, Sudden Increased Bleeding, Increased Pain/ Swelling, Increased Redness, Foul Smelling Discharge and Swelling at the incision site Call your doctor if you observe: Fever of 101 or Higher, Shortness of breath, Dizziness, Chest pain, Increased palpitations (irregular heartbeat) and Uncontrolled pain Meaningful Use Info Meaningful Use Diagnoses (Choose all that apply): AMI AMI/Post PCI/Angioplasty Aspirin given w/in 24hrs of arrival?: Yes ASA at discharge?: Yes Antiplatelet Therapy at Discharge:: No Reason Antiplatelet Therapy not ordered:: ASA only per cardio. Statins at discharge?: No Reason statins not ordered:: Allergy (FLP no marked, no marked disease on cath, deferred start per Cardio.) Ankit/ARB at discharge?: No Reason Ankit/ARB not ordered:: Hypotension Beta Cristin at discharge?: Yes Done w/ Acute [place] measure.: Yes Documented LVEF (%): 60 Discharge Plan Admission Admit Date/Time: 10/12/22 19:53 Primary Reason for Your Visit: NSTEMI presumed type I, Elevated BP without HTN Attending Provider: Dacia Nixon Primary Care Provider: Olive Chowdhury Consulting Providers: Henrik Waterman ; Kenroy Kelly Instructions Patient Instructions: Heart Attack Dc, Heart Attack Meds, Heart Attack Questions Additional Instructions / Restrictions: HEART ATTACK (TYPE I NSTEMI) INFORMATION/PLAN OF CARE: (1) Your heart catheterization and how your heart pumps were found to be normal. There may have been a small plaque in a vessel that ruptured that caused the discomfort and heart enzyme elevation/heart attack. (2) At this time cardiology Dr. Waterman would like to continue these medications for a total of 3 months and then may discontinue: (a) Toprol XL 25 mg daily (6) Aspirin (baby) 81 mg daily (3) At the 3 month period you may opt to follow-up with Dr. Waterman in the office at your preference. (4) If any recurrent chest discomfort please contact his office for earlier assessment. Discharge Orders/Prescriptions Prescriptions: New aspirin 81 mg Tablet,Chewable 81 mg PO BREAKFAST 90 Days Qty: 90 0RF metoprolol succinate [Toprol XL] 25 mg tablet extended release 24 hr 25 mg PO DAILY 90 Days Qty: 90 0RF Referrals / Follow Up: Henrik Waterman MD [Med Staff - Active Staff] - (May follow-up in 3 months per patient preference. May contact earlier if any concerns or recurrent chest pain.) Olive Chowdhury, [employer] [Primary Care Provider] - In 1 Week (To review admission and plan of care.) Disposition Disposition (needs filled in before D/C Order can be placed): Home, Self Care Charges/Coding Visit Charges Inpatient E&M: 42387 Disch Hosp >30min
--- NOTE | 2022-10-13 12:10 | CASEMGMT ---
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 Pt voices understanding and consents to?assessment?at this time.? Pt resting in bed in no distress at this time.? @ bedside. Pt is A/O at this time and answers all questions appropriately.?? Care providers, pharmacy, and demographics verified/updated at this time. PCP: Dr Olive Chowdhury Specialists: none Preferred Pharmacy: [facility] Retail Insurance: [facility] Prescription Benefit:?none Living Will/HPOA:?Has LW but does not have HCPOA. Pt made aware LW is not on file @ [facility]. LNOK: , Servando Living Arrangements: Lives w/Servando and 2 children in 3-story home w/4 steps to enter. Independent. Transportation:?Hire drivers DME: ? Denies using any DME and denies needs.? HHC/SNF: No hx of either. No needs identified. Pt wishes to return home and states has no concerns with going home. PLAN:??Home Linda BSN?RN?CM
--- NOTE | 2022-10-13 13:44 | PHA.DC.MC ---
Pharmacy Service has performed discharge medication reconciliation and counseling for this patient. 1. ASPIRIN 81MG PO BREAKFAST 2. METOPROLOL SUCCINATE 25MG PO DAILY The patient's discharge medication list was reviewed for discrepancies and discrepancies were resolved. Home Medications aspirin 81 mg chewable tablet 81 mg PO BREAKFAST 90 days #90 tabs 10/13/22 metoprolol succinate 25 mg tablet,extended release 24 hr (Toprol XL) 25 mg PO DAILY 90 days #90 tabs 10/13/22 The patient was counseled on the following discharge medications and changes in medications for homegoing were reviewed. The Reason for Use, instructions for use, and potential side effects were reviewed for all new medications. The patient's questions regarding all of their medications were answered. The patient was able to verbally demonstrate an understanding of their discharge medications.
[2022-10-13] MEDS: Acetaminophen 325 MG Tablet 650 MG PO (14:10)
--- NOTE | 2022-10-15 11:15 | CL.D_ITS ---
Patient Name: VARUN CHERRY Study Date: 10/13/2022 Performing: Henrik Waterman MD Ht: 63 inches 160.02 cm : 1970 Wt: 150.8 lbs 68.3 kg Age: 52 Gender: female BSA: 1.71 PROCEDURE(S) PERFORMED DC01-([id number])LHC/COR/LV CLINICAL PROFILE AND INDICATIONS Indications: Other, ACS <= 24 hrs Heart Failure: None Stress/Imaging Stress/Image Study Performed: No CAD Presentations: Non-STEMI. Symptom onset Date/Time: 10/12/22 Time Not Available CONCLUSIONS Normal coronary arteries Non obstructive coronary arteries Normal LV size, wall motion,and systolic function RECOMMENDATIONS Medical therapy DESCRIPTION OF PROCEDURE The patient arrived to the procedure lab. The risks and benefits of the procedure as well as a full description of our services here and current unavailability of surgical backup were fully explained to the patient and/or their significant other prior to the catheterization. The Timeout was completed, verifying the correct patient and procedure. The patient's procedural site was prepped and draped in the usual fashion. Local anesthetic was given subcutaneously to right radial region with Lidocaine 2%. Using a modified Seldinger technique, arterial access was obtained via the right radial artery, a 6Fr sheath was inserted. Left Coronary Artery selective angiography was performed in multiple views using a 5 Fr. 4.0 [place] catheter. Right Coronary Artery selective angiography was then performed in multiple views using a 5 Fr. 4.0 [place] catheter. Left Ventriculography was performed in DOMINGUEZ projection using a 5 Fr. Pigtail catheter. Simultaneous pressures were then recorded.The arterial sheath was pulled and a TR Band was applied for hemostasis CORONARY ANGIOGRAPHY DOMINANCE: Right Dominant LEFT HEART ASSESSMENT Left Ventricular Ejection Fraction: by LV Gram 65 % Normal Left Ventricular systolic function LEFT MAIN: Angiographically normal LEFT ANTERIOR DESCENDING ARTERY: No significant disease noted CIRCUMFLEX ARTERY: No significant disease noted RIGHT CORONARY ARTERY: No significant disease noted COMPLICATIONS No Complications PROCEDURE MEDICATIONS Versed 1 mg IV Fentanyl 50 mcg IV Oxygen: 2 L/min via nasal cannula Heparin given IA 10/13/2022 11:14:19 Verapamil 2.5mg, Ntg 100mcgs, 3000 units of Heparin given IA 10/13/2022 11:14:19 SUMMARY OF HEMODYNAMIC DATA Time AIR REST ECG 10:53:42 AO 142/88 (113) SA 11:23:01 LV 146/5, 12 11:28:56 LV 142/6, 14 11:29:03 Signed By Henrik Waterman MD On 10/15/2022 11:14:51 Henrik Waterman MD
== END 2022-10-13 18:03 | disposition home or self-care (01) | DRG 282 ==
LOC: ED 19:19 → PCU 21:08
PROVIDERS: Internal Medicine Cardiovascular Disease; Admitting Provider Family Medicine; Emergency Provider Student in an Organized Health Care Education/Training Program; PCP Nurse Practitioner Family; Referring Provider Student in an Organized Health Care Education/Training Program; Visit Provider Family Medicine
DX: I21.4 Non-ST elevation (NSTEMI) myocardial infarction (principal); D64.9 Anemia, unspecified; E87.6 Hypokalemia; R03.0 Elevated blood-pressure reading, without diagnosis of hypertension; Z79.82 Long term (current) use of aspirin; Z82.49 Family history of ischemic heart disease and other diseases of the circulatory system
CPT/HCPCS: 36415; 71045; 80048; 80061; 81025; 82607; 82746; 83540; 83550; 83735; 84484; 85025; 85379; 85610; 85730; 93005; 93306; 93458; 99152; 99153; 99285; J7030; J7040; A4216; C1769; C1894; Q9967

== ENCOUNTER → 2024-11-20 | Outpatient (CLI) | payer SELFPAY, OTHER | END | disposition home or self-care (01) | PROVIDERS: PCP Nurse Practitioner Family; Referring Provider Nurse Practitioner Gerontology; Visit Provider Nurse Practitioner Gerontology | DX: R09.89 Other specified symptoms and signs involving the circulatory and respiratory systems (principal) | CPT/HCPCS: 93880 ==